=== PATIENT | female | born 1950 | race Caucasian/White ===

== ENCOUNTER 2021-10-10 09:23 | Inpatient (IN) | payer OTHER ==
[2021-10-10] VITALS (19 sets, daily range): BP systolic 94–183; BP diastolic 58–100
[~2021-10-10] VITALS: Ht 165.1 cm; Wt 96.0 kg
[2021-10-10] MEDS ORDERED: HEPARIN SODIUM (PORCINE) 5000 UNITS/ML 1ML VIAL ONE (09:42)
[2021-10-10] MEDS ORDERED: ASPirin 325 MG TAB ONE (09:42)
[2021-10-10] MEDS ORDERED: fentaNYL CITRATE 100 MCG/2 ML VL ONE (09:43)
[2021-10-10] MEDS ORDERED: ANGIOMAX 250 MG VIAL IV ONE ×2 (09:43→10:10)
[2021-10-10] MEDS ORDERED: MIDAZOLAM HCL 2MG/2ML 2ml VIAL (1mg/ml) ONE (09:44)
[2021-10-10] MEDS ORDERED: IODIXANOL 320MG/ML 100ML BTL IV ONE ×3 (09:44→10:06)
[2021-10-10] MEDS ORDERED: LIDOCAINE 2%HCL (LOCAL ANESTH.) INJ 20ML MDV ONE (09:44)
[2021-10-10] MEDS ORDERED: SODIUM CHL 0.9% 0 ML ONE (09:44)
[2021-10-10] MEDS ORDERED: HEPARIN SODIUM (PORCINE) 5000 UNITS/ML 1ML VIAL IV ONE (09:45)
[2021-10-10] MEDS ORDERED: ASPirin-EC 325mg tab PO ONE (09:45)
[2021-10-10] MEDS ORDERED: EPINEPHrine HCL 1 MG/10 ML SYRG ONE (09:48)
[2021-10-10] MEDS ORDERED: ATROPINE SULF 1 MG/10ml SYR ONE (09:48)
[2021-10-10] MEDS ORDERED: diphenhdrAMINE HCL 50 MG/1 ML VL ONE (10:06)
[2021-10-10] MEDS ORDERED: SODIUM CHL 0.9% 50 ML ONE (10:10)
[2021-10-10 10:26] LABS: Basophils # (auto) 0.1 10 ^3/uL (0-0.2); Basophils % (auto) 0.5 % (0.0-2.0); Eosinophils # (auto) 0 10 ^3/uL (0-0.8); Eosinophils % (auto) 0.2 % (0.0-7.0); Hematocrit 50.1 % (36.0-46.0); Hemoglobin 15.9 g/dL (12.2-16.2); Lymphocytes # (auto) 3.5 10 ^3/uL (0.4-5.4); Lymphocytes % (auto) 19.8 % (10.0-50.0); Mean Corpuscular Hemoglobin 30.8 pg (28.0-32.0); Mean Corpuscular Hgb Conc. 31.8 g/dL (32.0-36.0); Mean Corpuscular Volume 97.1 fL (80.0-100.0); Monocytes # (auto) 1.1 10 ^3/uL (0-1.3); Monocytes % (auto) 6.1 % (0.0-12.0); Neutrophils % (auto) 73.4 % (37.0-80.0); Nucleated Red Blood Cells % 0.1 %; Red Blood Cells 5.16 10^6/uL (4.0-5.20); Red Cell Distribution Width 14.3 % (11.8-14.3); White Blood Cell 17.7 10^3/uL (4.4-10.8)
[2021-10-10 10:48] LABS: INR 1.18 (0.9-1.15); Partial Thromboplastin Time 27.9 sec (23.6-33.0)
[2021-10-10 10:50] LABS: Albumin 3.1 g/dL (3.4-5.0); Potassium 4.2 mmol/L (3.5-5.1)
[2021-10-10 10:59] LABS: BUN/Creatinine Ratio 13.8; Bilirubin, Total 1.2 mg/dL (0.2-1.0)
[2021-10-10] MEDS ORDERED: METOPROLOL TARTRATE 1MG/1ML-5ML VIAL IV ONE ×2 (11:11→11:15)
[2021-10-10] MEDS ORDERED: MORPHINE SULFATE INJECTION 2 MG/ML SYRG ONE (11:12)
[2021-10-10] MEDS ORDERED: MORPHINE SULFATE INJECTION 2 MG/ML SYRG IV ONE (11:15)
[2021-10-10] MEDS ORDERED: ASPirin 81 mg TAB PO ONE (11:15)
[2021-10-10] MEDS ORDERED: CLOPIDOGREL BISULFATE 75 MG TAB PO ONE (11:15)
[2021-10-10] MEDS ORDERED: SODIUM CHLORIDE 0.9% 3,000 ML IV ONE (11:30)
[2021-10-10] MEDS ORDERED: cefTRIAXone 1GM/50ML D5W 50 ML IV ONE (11:30)
[2021-10-10] MEDS ORDERED: INSULIN LANTUS (GLARGINE) 1 /0.01ml (100units/ml) SC ONE (11:30)
[2021-10-10] MEDS ORDERED: DEXTROSE (50%) 50ML SYRG IV PRN (11:30)
[2021-10-10] MEDS ORDERED: InsuLIN R (HUMAN) 100 UNITS in SODIUM CHL 0.9% 99 ML IV SCH (11:30)
[2021-10-10] MEDS ORDERED: D5W/SOD CHLO 0.9% 1,000 ML IV PRN (11:45)
[2021-10-10] MEDS ORDERED: MORPHINE SULFATE INJECTION 2 MG/ML SYRG IV PRN ×3 (11:45→15:00)
[2021-10-10] MEDS ORDERED: SOD CHL 0.9%/ KCL 20MEQ 1,000 ML IV PRN (11:45)
[2021-10-10] MEDS ORDERED: NITROGLYCERIN 0.4 MG SL TAB SL PRN ×2 (11:45→15:00)
[2021-10-10] MEDS ORDERED: PANTOPRAZOLE 40 MG/10 ML VIAL INJ IV ONE ×2 (11:45→15:15)
[2021-10-10] MEDS: ACCU-CHEK COMFORT CURVE STRIP VI SCH ×8 (12:10→22:35)
[2021-10-10 12:19] LABS: Magnesium 2.9 mg/dL (1.6-2.6); Phosphorus 5.9 mg/dL (2.5-4.90)
[2021-10-10] MEDS: SODIUM CHLORIDE 0.9% 1,000 ML IV SCH ×2 (13:56→19:28)
[2021-10-10] MEDS ORDERED: OPTISON 3ml Vial for INJ IV ONE ×3 (14:09→14:15)
[2021-10-10] MEDS ORDERED: BENAZEPRIL HCL 10 MG TAB PO ONE ×2 (14:30→15:15)
[2021-10-10] MEDS ORDERED: METOPROLOL SUCCINATE XL 50 MG TAB PO ONE ×2 (14:30→15:15)
[2021-10-10] MEDS ORDERED: CLINDAMYCIN 600MG IV 50 ML IV ONE (14:30)
[2021-10-10] MEDS ORDERED: LABETALOL HCL 5 MG/ML 4ML SYRINGE IV ONE (14:30)
[2021-10-10] MEDS ORDERED: ALUM & MAG HYDROX-SIMETH LIQ(MAALOX) 30 ML PO PRN (15:00)
[2021-10-10] MEDS ORDERED: DOCUSATE SOD 100 MG CAP PO PRN (15:00)
[2021-10-10] MEDS ORDERED: HYDROcodone-ACET 5/325MG TAB PO PRN (15:00)
[2021-10-10] MEDS ORDERED: ACETAMINOPHEN 325 MG TAB PO PRN (15:00)
[2021-10-10] MEDS ORDERED: METOCLOPRAMIDE HCL 5MG/ml INJ 2ml VIAL IV PRN (15:00)
[2021-10-10] MEDS ORDERED: LORazepam 0.5 MG TAB PO PRN (15:00)
[2021-10-10] MEDS ORDERED: LORazepam 2MG/ML-1ML VIAL IV PRN (15:15)
[2021-10-10 15:43] LABS: Free T3 2.01 pg/mL (2.3-4.2); Free T4 (Free Thyroxine) 0.88 ng/dL (0.89-1.76)
[2021-10-10 17:11] LABS: Lactic Acid w/Reflex 10.7 mmol/L (0.4-2.0)
[2021-10-10 17:12] LABS: BUN/Creatinine Ratio 15.7; Calcium 7.9 mg/dL (8.5-10.1); Potassium 4.4 mmol/L (3.5-5.1)
[2021-10-10 17:24] LABS: Magnesium 2.4 mg/dL (1.6-2.6); Phosphorus 5.8 mg/dL (2.5-4.90)
[2021-10-10] MEDS ORDERED: FUROSEMIDE 20 MG/2 ML VIAL IV ONE (17:30)
[2021-10-10] MEDS ORDERED: SODIUM CHLORIDE 0.9% 1,000 ML IV ONE (18:00)
[2021-10-10] MEDS ORDERED: FUROSEMIDE 40 MG/4 ML VIAL IV ONE (19:00)
[2021-10-10] MEDS ORDERED: ATORVASTATIN 20 MG TAB PO SCH (22:00)
[2021-10-10] MEDS: CLINDAMYCIN 600MG IV 50 ML IV SCH (22:34)
[2021-10-11] VITALS (73 sets, daily range): BP systolic 89–193; BP diastolic 41–89
[2021-10-11] MEDS: ACCU-CHEK COMFORT CURVE STRIP VI SCH ×10 (01:48→20:00)
[2021-10-11] MEDS: SODIUM CHLORIDE 0.9% 1,000 ML IV SCH ×3 (01:50→09:16)
[2021-10-11 02:18] LABS: Urine Bacteria NONE SEEN /hpf (None Seen); Urine Blood 3+ /uL (Negative); Urine Hyaline Cast FEW /lpf (0 - 2); Urine Mucus FEW (None Seen); Urine Specific Gravity 1.041 (1.001-1.035); Urine WBC 17 /hpf (0 - 5)
[2021-10-11 02:27] LABS: Amphetamine Screen, Urine NEGATIVE (NEGATIVE); Barbiturate Scree,Urine NEGATIVE (NEGATIVE); Benzodiazephine Screen, Urine POSITIVE (NEGATIVE); Cannabinoid Screen, Urine NEGATIVE (NEGATIVE); Cocaine Screen, Urine NEGATIVE (NEGATIVE); Phencyclidine Screen, Urine NEGATIVE (NEGATIVE)
[2021-10-11] MEDS: LABETALOL HCL 5 MG/ML 4ML SYRINGE IV PRN ×3 (02:33→11:17)
[2021-10-11 02:35] LABS: Opiate Scree,Urine POSITIVE (NEGATIVE)
[2021-10-11 03:56] LABS: INR 2.03 (0.9-1.15)
[2021-10-11 04:36] LABS: Potassium 4.8 mmol/L (3.5-5.1)
[2021-10-11 04:37] LABS: Albumin 2.3 g/dL (3.4-5.0); BUN/Creatinine Ratio 17.6; Bilirubin, Total 0.8 mg/dL (0.2-1.0); Calcium 6.6 mg/dL (8.5-10.1); Total Protein 5.4 g/dL (6.4-8.2); Uric Acid 10.9 mg/dL (2.6-6.0)
[2021-10-11] MEDS: CLINDAMYCIN 600MG IV 50 ML IV SCH ×3 (06:00→22:45)
[2021-10-11] MEDS ORDERED: FUROSEMIDE 40 MG/4 ML VIAL IV ONE (08:45)
[2021-10-11] MEDS: cefTRIAXone 1GM/50ML D5W 50 ML IV SCH (09:16)
[2021-10-11 09:23] LABS: Hematocrit 41.1 % (36.0-46.0); Hemoglobin 13.2 g/dL (12.2-16.2); Mean Corpuscular Hemoglobin 30.1 pg (28.0-32.0); Mean Corpuscular Volume 93.9 fL (80.0-100.0); Red Blood Cells 4.37 10^6/uL (4.0-5.20); Red Cell Distribution Width 14.2 % (11.8-14.3); White Blood Cell 12.4 10^3/uL (4.4-10.8)
[2021-10-11 09:24] LABS: Basophils % (manual) 0 (0.0-2.0); Blast Cells 0; Eosinophils % (manual) 0 (0-7); Metamyelocytes % 0; Promyelocytes % 0; Reactive Lymphocytes 0
[2021-10-11 09:37] LABS: Band Neutrophils % (manual) 5; Lymphocytes % (manual) 22 (10.0-50.0); Monocytes % (manual) 2 (0-12); Myelocytes % 1
[2021-10-11] MEDS: PANTOPRAZOLE 40 MG/10 ML VIAL INJ IV SCH (09:49)
[2021-10-11] MEDS: INSULIN LANTUS (GLARGINE) 1 /0.01ml (100units/ml) SC SCH ×2 (09:50→23:00)
[2021-10-11] MEDS: SODIUM BICARB 50ML SYR 75 ML in SOD CHL 0.45% 1,000 ML IV SCH ×2 (09:50→23:00)
[2021-10-11] MEDS ORDERED: METOPROLOL SUCCINATE XL 50 MG TAB PO SCH (10:00)
[2021-10-11] MEDS ORDERED: PANTOPRAZOLE 40 MG/10 ML VIAL INJ IV SCH (10:00)
[2021-10-11] MEDS ORDERED: ENOXAPARIN SOD 40 MG/0.4 ML SYRINGE SC SCH (10:00)
[2021-10-11] MEDS ORDERED: ASPirin 81 mg TAB PO SCH (10:00)
[2021-10-11] MEDS ORDERED: BENAZEPRIL HCL 10 MG TAB PO SCH (10:00)
[2021-10-11] MEDS ORDERED: CLOPIDOGREL BISULFATE 75 MG TAB PO SCH (10:00)
[2021-10-11] MEDS ORDERED: ETOMIDATE (2MG/ML) 20ML VIAL IV ONE (13:16)
[2021-10-11] MEDS ORDERED: ROCURONIUM 10MG/ML 10ML VIAL IV ONE (13:16)
[2021-10-11] MEDS ORDERED: fentaNYL Drip 2500mCg/250mlNS 250 ML IV ONE (13:45)
[2021-10-11] MEDS ORDERED: PROPOFOL 100 ML IV ONE (13:46)
[2021-10-11 15:22] LABS: Basophils # (auto) 0 10 ^3/uL (0-0.2); Basophils % (auto) 0.4 % (0.0-2.0); Eosinophils # (auto) 0 10 ^3/uL (0-0.8); Eosinophils % (auto) 0.4 % (0.0-7.0); Hematocrit 37.1 % (36.0-46.0); Lymphocytes # (auto) 1.4 10 ^3/uL (0.4-5.4); Lymphocytes % (auto) 14.2 % (10.0-50.0); Mean Corpuscular Hemoglobin 30.4 pg (28.0-32.0); Mean Corpuscular Hgb Conc. 32.4 g/dL (32.0-36.0); Mean Corpuscular Volume 93.8 fL (80.0-100.0); Monocytes # (auto) 0.5 10 ^3/uL (0-1.3); Monocytes % (auto) 5.2 % (0.0-12.0); Neutrophils % (auto) 79.8 % (37.0-80.0); Nucleated Red Blood Cells % 0.2 %; Red Blood Cells 3.95 10^6/uL (4.0-5.20); Red Cell Distribution Width 14.4 % (11.8-14.3)
[2021-10-11 15:46] LABS: Albumin 2.3 g/dL (3.4-5.0); Calcium 6.5 mg/dL (8.5-10.1); Potassium 3.9 mmol/L (3.5-5.1)
[2021-10-11 16:03] LABS: BUN/Creatinine Ratio 17.6; Bilirubin, Total 0.7 mg/dL (0.2-1.0); Total Protein 5.1 g/dL (6.4-8.2)
[2021-10-11] MEDS: fentaNYL Drip 2500mCg/250mlNS 250 ML IV SCH (16:15)
[2021-10-11] MEDS: PROPOFOL 100 ML IV SCH (16:15)
[2021-10-11] MEDS ORDERED: DEXTROSE (50%) 50ML SYRG IV PRN (16:45)
[2021-10-11] MEDS: FUROSEMIDE 40 MG/4 ML VIAL IV SCH (17:39)
[2021-10-11] MEDS: InsuLIN REG 1unit/0.01ml Soln (100units/ml) SC SCH (20:00)
[2021-10-11] MEDS: CARVEDILOL 3.125 MG TAB PO SCH (22:00)
[2021-10-11] MEDS: hydrALAZINE HCL 25 MG TAB PO SCH (22:00)
[2021-10-12] VITALS (95 sets, daily range): BP systolic 77–149; BP diastolic 40–71
[2021-10-12] MEDS: InsuLIN REG 1unit/0.01ml Soln (100units/ml) SC SCH ×6 (04:00→23:39)
[2021-10-12] MEDS: ACCU-CHEK COMFORT CURVE STRIP VI SCH ×6 (04:05→23:39)
[2021-10-12 04:43] LABS: Basophils # (auto) 0.1 10 ^3/uL (0-0.2); Basophils % (auto) 0.6 % (0.0-2.0); Eosinophils # (auto) 0.1 10 ^3/uL (0-0.8); Eosinophils % (auto) 0.9 % (0.0-7.0); Hematocrit 35.9 % (36.0-46.0); Lymphocytes # (auto) 2.1 10 ^3/uL (0.4-5.4); Lymphocytes % (auto) 20.5 % (10.0-50.0); Mean Corpuscular Hgb Conc. 33.3 g/dL (32.0-36.0); Mean Corpuscular Volume 93.3 fL (80.0-100.0); Monocytes # (auto) 0.5 10 ^3/uL (0-1.3); Monocytes % (auto) 4.7 % (0.0-12.0); Neutrophils # (auto) 7.6 10 ^3/uL (1.6-8.6); Neutrophils % (auto) 73.3 % (37.0-80.0); Nucleated Red Blood Cells % 0.2 %; Red Blood Cells 3.85 10^6/uL (4.0-5.20); Red Cell Distribution Width 14.3 % (11.8-14.3); White Blood Cell 10.4 10^3/uL (4.4-10.8)
[2021-10-12 05:02] LABS: BUN/Creatinine Ratio 17.8; Calcium 6.2 mg/dL (8.5-10.1); Potassium 3.3 mmol/L (3.5-5.1)
[2021-10-12] MEDS: hydrALAZINE HCL 25 MG TAB PO SCH ×3 (05:29→21:37)
[2021-10-12] MEDS: ALBUTEROL SULF 2.5 MG/0.5ML(0.5%) NEB SOLN NEB PRN ×2 (05:50→14:45)
[2021-10-12] MEDS ORDERED: POTASSIUM CHL 20MEQ/100ML 100 ML IV ONE ×2 (06:00)
[2021-10-12] MEDS: FUROSEMIDE 40 MG/4 ML VIAL IV SCH ×2 (06:18→17:39)
[2021-10-12] MEDS: CLINDAMYCIN 600MG IV 50 ML IV SCH ×3 (06:18→21:52)
[2021-10-12] MEDS: PROPOFOL 100 ML IV SCH (06:19)
[2021-10-12] MEDS: cefTRIAXone 1GM/50ML D5W 50 ML IV SCH (09:00)
[2021-10-12 09:33] LABS: BUN/Creatinine Ratio 17.8; Calcium 6.4 mg/dL (8.5-10.1); Potassium 3.5 mmol/L (3.5-5.1)
[2021-10-12] MEDS: INSULIN LANTUS (GLARGINE) 1 /0.01ml (100units/ml) SC SCH ×2 (10:00→22:01)
[2021-10-12] MEDS: CARVEDILOL 3.125 MG TAB PO SCH ×2 (10:00→13:23)
[2021-10-12 10:32] LABS: Albumin 2.1 g/dL (3.4-5.0); Bilirubin, Direct 0.6 mg/dL (0-0.2)
[2021-10-12 10:48] LABS: Bilirubin, Total 0.8 mg/dL (0.2-1.0); Total Protein 4.9 g/dL (6.4-8.2)
[2021-10-12] MEDS: SODIUM BICARB 50ML SYR 75 ML in SOD CHL 0.45% 1,000 ML IV SCH (10:50)
[2021-10-12] MEDS: D5W/SOD CHL 0.45% 1,000 ML IV SCH (11:46)
[2021-10-12] MEDS: PANTOPRAZOLE 40 MG/10 ML VIAL INJ IV SCH (12:33)
[2021-10-12 12:51] LABS: Hepatitis A Ab IgM Negative
[2021-10-12 13:13] LABS: Hepatitis B Core IgM Negative
[2021-10-12 13:15] LABS: Hepatitis C Antibody Negative (Negative)
[2021-10-12] MEDS: ACETYLCYSTEINE ORAL for CIN 20%(200MG/ML) 4ML PO SCH ×2 (13:38→21:53)
[2021-10-12] MEDS ORDERED: NOREPINEPHRINE 8 MG/250ML KIT 250 ML IV ONE (15:56)
[2021-10-12] MEDS ORDERED: SODIUM CHLORIDE 0.9% 500 ML IV ONE (16:00)
[2021-10-12] MEDS ORDERED: NOREPINEPHRINE 8 MG/250ML KIT 250 ML IV SCH (16:00)
[2021-10-12] MEDS: fentaNYL Drip 2500mCg/250mlNS 250 ML IV SCH (16:15)
[2021-10-12] MEDS: FREE WATER GT SCH ×2 (17:39→23:38)
[2021-10-12] MEDS ORDERED: POTASSIUM EFFERVESENT TAB 25 MEQ GT SCH (22:00)
[2021-10-13] VITALS (46 sets, daily range): BP systolic 82–228; BP diastolic 38–104
[2021-10-13] MEDS: D5W/SOD CHL 0.45% 1,000 ML IV SCH
[2021-10-13 05:06] LABS: Basophils # (auto) 0.1 10 ^3/uL (0-0.2); Basophils % (auto) 0.6 % (0.0-2.0); Eosinophils # (auto) 0.2 10 ^3/uL (0-0.8); Eosinophils % (auto) 2.1 % (0.0-7.0); Hematocrit 35.2 % (36.0-46.0); Hemoglobin 11.8 g/dL (12.2-16.2); Lymphocytes # (auto) 1.5 10 ^3/uL (0.4-5.4); Lymphocytes % (auto) 17.1 % (10.0-50.0); Mean Corpuscular Hemoglobin 30.8 pg (28.0-32.0); Mean Corpuscular Hgb Conc. 33.4 g/dL (32.0-36.0); Mean Corpuscular Volume 92.4 fL (80.0-100.0); Monocytes # (auto) 0.5 10 ^3/uL (0-1.3); Monocytes % (auto) 5.6 % (0.0-12.0); Neutrophils # (auto) 6.6 10 ^3/uL (1.6-8.6); Neutrophils % (auto) 74.6 % (37.0-80.0); Nucleated Red Blood Cells % 0.3 %; Red Blood Cells 3.81 10^6/uL (4.0-5.20); Red Cell Distribution Width 14.5 % (11.8-14.3); White Blood Cell 8.9 10^3/uL (4.4-10.8)
[2021-10-13 05:33] LABS: Albumin 1.9 g/dL (3.4-5.0); Calcium 6.7 mg/dL (8.5-10.1); Potassium 3.3 mmol/L (3.5-5.1)
[2021-10-13] MEDS: ACCU-CHEK COMFORT CURVE STRIP VI SCH (05:49)
[2021-10-13] MEDS: InsuLIN REG 1unit/0.01ml Soln (100units/ml) SC SCH (05:50)
[2021-10-13 05:54] LABS: BUN/Creatinine Ratio 16.7; Bilirubin, Total 0.9 mg/dL (0.2-1.0); Total Protein 4.6 g/dL (6.4-8.2)
[2021-10-13] MEDS: CLINDAMYCIN 600MG IV 50 ML IV SCH (06:00)
[2021-10-13] MEDS: hydrALAZINE HCL 25 MG TAB PO SCH (06:00)
[2021-10-13] MEDS: FUROSEMIDE 40 MG/4 ML VIAL IV SCH (06:28)
[2021-10-13] MEDS: FREE WATER GT SCH (06:32)
[2021-10-13] MEDS ORDERED: EPINEPHrine HCL 250 ML IV ONE (08:49)
[2021-10-13] MEDS ORDERED: SODIUM BICARBONATE 8.4% INJ 50ML SYRINGE IV ONE (11:58)
[2021-10-13] MEDS ORDERED: EPINEPHrine HCL 1 MG/10 ML SYRG IV ONE (11:58)
[2021-10-13] MEDS ORDERED: SODIUM BICARBONATE 50ML VIAL 50 ML in SODIUM CHLORIDE 0.9% 1,000 ML IV SCH (12:45)
== END 2021-10-13 12:16 | DRG 250 ==
LOC: EDBD 09:23 → ER 09:23 → TELE 11:42 → CATH ICU 10-11 02:21 → ICU WEST 10-11 06:57
PROVIDERS: ADMIT Hospitalist; ATTEND Hospitalist
PROC: B41FYZZ Fluoroscopy of Right Lower Extremity Arteries using Other Contrast (ICD-10-PCS; principal; 2021-10-10)
PROC: B211YZZ Fluoroscopy of Multiple Coronary Arteries using Other Contrast (ICD-10-PCS; 2021-10-10)
PROC: 4A023N7 Measurement of Cardiac Sampling and Pressure, Left Heart, Percutaneous Approach (ICD-10-PCS; 2021-10-10)
PROC: B215YZZ Fluoroscopy of Left Heart using Other Contrast (ICD-10-PCS; 2021-10-10)
PROC: 02703ZZ Dilation of Coronary Artery, One Artery, Percutaneous Approach (ICD-10-PCS; 2021-10-10)
PROC: 03HY32Z Insertion of Monitoring Device into Upper Artery, Percutaneous Approach (ICD-10-PCS; 2021-10-11)
PROC: 4A133B1 Monitoring of Arterial Pressure, Peripheral, Percutaneous Approach (ICD-10-PCS; 2021-10-11)
PROC: 5A1945Z Respiratory Ventilation, 24-96 Consecutive Hours (ICD-10-PCS; 2021-10-11)
PROC: 0BH17EZ Insertion of Endotracheal Airway into Trachea, Via Natural or Artificial Opening (ICD-10-PCS; 2021-10-11)
PROC: 4A133J1 Monitoring of Arterial Pulse, Peripheral, Percutaneous Approach (ICD-10-PCS; 2021-10-11)
PROC: 02HV33Z Insertion of Infusion Device into Superior Vena Cava, Percutaneous Approach (ICD-10-PCS; 2021-10-11)
PROC: B548ZZA Ultrasonography of Superior Vena Cava, Guidance (ICD-10-PCS; 2021-10-11)
PROC: 5A12012 Performance of Cardiac Output, Single, Manual (ICD-10-PCS; 2021-10-13)
DX: I21.29 ST elevation (STEMI) myocardial infarction involving other sites (principal); I60.9 Nontraumatic subarachnoid hemorrhage, unspecified; E11.10 Type 2 diabetes mellitus with ketoacidosis without coma; G92.9 Unspecified toxic encephalopathy; J96.01 Acute respiratory failure with hypoxia; K72.00 Acute and subacute hepatic failure without coma; N39.0 Urinary tract infection, site not specified; I16.9 Hypertensive crisis, unspecified; E87.3 Alkalosis; E66.01 Morbid (severe) obesity due to excess calories; I25.10 Atherosclerotic heart disease of native coronary artery without angina pectoris; I25.5 Ischemic cardiomyopathy; Z20.822 Contact with and (suspected) exposure to COVID-19; E11.21 Type 2 diabetes mellitus with diabetic nephropathy; E78.5 Hyperlipidemia, unspecified; N18.32 Chronic kidney disease, stage 3b; E87.8 Other disorders of electrolyte and fluid balance, not elsewhere classified; E11.22 Type 2 diabetes mellitus with diabetic chronic kidney disease; I12.9 Hypertensive chronic kidney disease with stage 1 through stage 4 chronic kidney disease, or unspecified chronic kidney disease; J45.909 Unspecified asthma, uncomplicated; Z91.19 Patient's noncompliance with other medical treatment and regimen; Z68.35 Body mass index [BMI] 35.0-35.9, adult; Z78.1 Physical restraint status; Z79.4 Long term (current) use of insulin; Z90.710 Acquired absence of both cervix and uterus; Z88.2 Allergy status to sulfonamides
CPT/HCPCS: 36415; 36600; 70450; 71045; 75710; 76700; 80048; 80053; 80074; 80076; 80307; 81001; 82010; 82306; 82805; 82962; 83036; 83605; 83735; 83880; 83930; 84100; 84439; 84443; 84481; 84484; 84550; 85007; 85025; 85027; 85379; 85610; 85730; 86850; 86900; 86901; 87040; 87070; 87081; 87205; 87426; 92920; 92950; 93005; 93306; 94002; 94003; 94640; 96374; 99152; 99153; 99291; A4565; C9113; G0378; J0171; J0696; J1815; J2250; J2704; J3480; J3490; J7042; Q9956; Q9967